=== PATIENT | male | born 1980 | race Hispanic/Latino ===

== ENCOUNTER 2024-12-22 23:48 | Inpatient (IN) | payer BC, OTHER, SELFPAY ==
[2024-12-23] MEDS ORDERED: ONDANSETRON 4 MG/2 ML VIAL ONE (01:14)
[2024-12-23] MEDS ORDERED: MORPHINE 4 MG/ML SYR ONE (01:14)
[2024-12-23] MEDS ORDERED: FAMOTIDINE 20 MG/2 ML VIAL IV ONE (01:14)
[2024-12-23] MEDS ORDERED: NA CHLORIDE 0.9% 2,000 ML ONE (01:15)
[2024-12-23] MEDS ORDERED: PIPERACIL/TAZO 3.375 GM VIAL IV ONE (01:15)
[2024-12-23] MEDS ORDERED: NA CHLORIDE 0.9% 100 ML ONE (01:15)
--- NOTE | 2024-12-23 01:24 | ER ---
Nurse's Notes [facility] Name: Wilfredo Finley Age: 44 yrs Sex: Male : 1980 Arrival Date: 12/22/2024 Time: 23:48 Bed 3 Private MD: Diagnosis: Cough;Fever, unspecified;Dehydration;Ankylosing spondylitis lumbar region;Paraplegia;Tachycardia, unspecified;Bandemia Presentation: 12/22 22:53 Chief complaint: EMS states: shortness of breath, body chills, chest palpitations, ha1 nausea, and vomiting. 22:53 Coronavirus screen: Client denies travel out of the [place] in the last 14 days. Ebola ha1 Screen: No symptoms or risks identified at this time. Initial Sepsis Screen: Does the patient meet any 2 criteria? No. Patient's initial sepsis screen is negative. Does the patient have a suspected source of infection? No. Patient's initial sepsis screen is negative. Risk Assessment: Do you want to hurt yourself or someone else? Patient reports no desire to harm self or others. Onset of symptoms was December 23, 2024. 22:53 Method Of Arrival: EMS: [facility] ha1 22:53 Acuity: JAYJAY 2 ha1 12/23 00:03 Care prior to arrival: Medication(s) given: Normal saline infusion, 500 mL, zofran 4 mg.ha1 Historical: - Allergies: 00:00 No Known Allergies; ha1 - Home Meds: 00:00 Fentanyl Patch Topical [Active]; Hydrocodone-Acetaminophen Oral [Active]; Morphine Oral ha1 [Active]; - PMHx: 00:00 Ankylosing Spondylitis; paraplegic; Pneumonia; ha1 - PSHx: 00:00 hip replacement; knee replacement; tendon release; ha1 - Immunization history:: Adult Immunizations up to date. - Infectious Disease History:: Denies. - Social history:: Smoking status: Patient denies any tobacco usage or history of. Screenin/09 23:50 [facility] ED Fall Risk Assessment (Adult) History of falling in the last 3 months, br2 including since admission No falls in past 3 months (0 pts) Confusion or Disorientation No (0 pts) Intoxicated or Sedated No (0 pts) Impaired Gait No (0 pts) Mobility Assist Device Used No (0 pt) Altered Elimination No (0 pt) Score/Fall Risk Level 0 - 2 = Low Risk. Abuse screen: Denies threats or abuse. Denies injuries from another. Nutritional screening: No deficits noted. Tuberculosis screening: No symptoms or risk factors identified. Assessment: 23:50 Reassessment: Patient and/or family updated on plan of care and expected duration. Pain br2 level reassessed. Patient is alert, oriented x 3, equal unlabored respirations, skin warm/dry/pink. General: Appears in no apparent distress. comfortable, Behavior is calm, cooperative. Pain: Complains of pain in chest, abdomen, right arm, left arm, right leg and left leg Pain currently is 6 out of 10 on a pain scale. Respiratory: Airway is patent Respiratory effort is even, unlabored, Respiratory pattern is regular, symmetrical. Vital Signs: 22:53 BP 130 / 85; Pulse 131; Resp 20; Temp 97.8; Pulse Ox 99% on R/A; ha1 12/23 01:00 BP 130 / 82; Pulse 126; Resp 18; Temp 97.1; Pulse Ox 100% ; br2 01:00 BP 134 / 81; Pulse 121; Resp 19; Pulse Ox 99% on R/A; br2 01:44 Weight 58.97 kg; br2 02:30 BP 133 / 93; Pulse 115; Resp 16; Pulse Ox 99% on R/A; br2 03:17 BP 121 / 82; Pulse 113; Resp 20 S; Pulse Ox 97% on R/A; Height 5 ft. 7 in. ; br2 ED Course: 12/22 23:50 Patient has correct armband on for positive identification. Bed in low position. Call br2 light in reach. Side rails up X 1. Provided Education on: PLAN OF CARE. 23:52 Patient arrived in ED. rv1 23:55 Rich Villavicencio MD is Attending Physician. [facility] 12/23 00:00 Triage completed. ha1 00:00 Maintain EMS IV. IV Changed dressing on Flushed right antecubital. br2 00:01 Niya Hinkle RN is Primary Nurse. br2 00:50 First set of blood cultures drawn by me. oe 01:09 Second set of blood cultures drawn by me. oe 01:10 Lactate w/ 2H reflex if indic. Sent. br2 01:10 Blood Culture Adult (2) Sent. br2 01:21 Matt Wong MD is Hospitalizing Provider. gabino 01:25 XRAY Chest (1 view) In Process Unspecified. EDMS 01:29 Flu Sent. oe 01:29 SARS RAPID Sent. oe 01:33 Flu Sent. br2 01:44 Manual Differential Sent. br2 02:40 CT Chest, Abdomen, Pelvis - W/Contrast In Process Unspecified. EDMS Administered Medications: 01:33 Drug: morphine IVP or IV 4 mg IVP once over 4 mins Route: IVP; Infused Over: 4 mins; br2 Site: right antecubital; 02:00 Follow up: Response: No adverse reaction br2 01:33 Drug: Ondansetron IVP 4 mg IVP once; over 2 minutes Route: IVP; Site: right antecubital;br2 02:00 Follow up: Response: No adverse reaction br2 01:45 Drug: Famotidine IVP 20 mg IVP once; dilute with 10 mL 0.9% NaCl; give over 2 minutes br2 Route: IVP; Site: right antecubital; 02:15 Follow up: Response: No adverse reaction br2 01:45 Drug: NS 0.9% IV (30 ml/kg) 30 ml/kg IV at bolus once; Sepsis Protocol; to be given as br2 a bolus over 90 minutes Route: IV; Rate: bolus; Site: right antecubital; 01:48 Drug: Piperacillin-Tazobactam IVPB 3.375 grams IVPB once over 60 mins; (mix in NS 100 br2 mL) Route: IVPB; Infused Over: 60 mins; Site: right antecubital; 02:30 Follow up: IV Status: Completed infusion; IV Intake: 100ml br2 Medication: 12/22 23:50 VIS not applicable for this client. br2 Intake: 12/23 02:30 IV: 100ml; Total: 100ml. br2 Outcome: 01:24 Decision to Hospitalize by Provider. gabino 04:23 Patient left the ED. br2 Signatures: Dispatcher [employer] EDMS Rich Villavicencio MD MD cha Espinosa, Orlando oe Ayala, Heidy, RN RN ha1 Lani Kim rv1 Niya Hinkle RN RN br2 Corrections: (The following items were deleted from the chart) 03:38 03:17 BP 121 / 82; Pulse 113bpm; Resp 20bpm; Spontaneous; Pulse Ox 97% RA; br2 br2
--- NOTE | 2024-12-23 01:24 | EDPHYS ---
Physician Documentation [facility] Name: Wilfredo Finley Age: 44 yrs Sex: Male : 1980 Arrival Date: 12/22/2024 Time: 23:48 Bed 3 Private MD: NARCISO Physician Rich Villavicencio HPI: 12/23 01:12 This 44 yrs old Male presents to ER via EMS with complaints of weak, cough , gabino back pain and fever. 01:12 The patient presents with pain, tenderness. The complaints affect the right leg and gabino left leg. Context: The problem was sustained at an unknown site. Modifying factors: The symptoms are alleviated by nothing. the symptoms are aggravated by nothing. The patient has shortness of breath at rest. The patient presents with pain that is chronic, with no known mechanism of injury. The symptoms are located in the lumbar area, left low back, left mid back, right mid back and right low back. weak , fever , hx of HLA B27. Severity of symptoms: At their worst the symptoms were moderate, in the emergency department the symptoms are unchanged. Severity of symptoms: At their worst the symptoms were moderate in the emergency department the symptoms are unchanged. The patient reports fever, that was measured at 100 degrees Fahrenheit. Modifying factors: there are no obvious modifying factors. Historical: - Allergies: 00:00 No Known Allergies; ha1 - Home Meds: 00:00 Fentanyl Patch Topical [Active]; Hydrocodone-Acetaminophen Oral [Active]; Morphine Oral ha1 [Active]; - PMHx: 00:00 Ankylosing Spondylitis; paraplegic; Pneumonia; ha1 - PSHx: 00:00 hip replacement; knee replacement; tendon release; ha1 - Immunization history:: Adult Immunizations up to date. - Infectious Disease History:: Denies. - Social history:: Smoking status: Patient denies any tobacco usage or history of. ROS: 01:15 Constitutional: Negative for fever, chills, and weight loss, Eyes: Negative for injury, gabino pain, redness, and discharge, ENT: Negative for injury, pain, and discharge, Neck: Negative for injury, pain, and swelling, Cardiovascular: Negative for chest pain, palpitations, and edema, Abdomen/GI: Negative for abdominal pain, nausea, vomiting, diarrhea, and constipation, : Negative for injury, bleeding, discharge, and swelling, MS/Extremity: Negative for injury and deformity, Psych: Negative for depression, anxiety, suicide ideation, homicidal ideation, and hallucinations, Allergy/Immunology: Negative for hives, rash, and allergies, Endocrine: Negative for neck swelling, polydipsia, polyuria, polyphagia, and marked weight changes, 01:15 Respiratory: Positive for cough, shortness of breath, 01:15 Back: Positive for decreased range of motion, pain at rest, pain with movement, :15 MS/extremity: Positive for erythema, of the right leg and left leg, :15 Neuro: Positive for weakness, Exam: :15 Constitutional: This is a well developed, well nourished patient who is awake, alert, gabino and in no acute distress. Head/Face: Normocephalic, atraumatic. Eyes: Pupils equal round and reactive to light, extra-ocular motions intact. Lids and lashes normal. Conjunctiva and sclera are non-icteric and not injected. Cornea within normal limits. Periorbital areas with no swelling, redness, or edema. ENT: Nares patent. No nasal discharge, no septal abnormalities noted. Tympanic membranes are normal and external auditory canals are clear. Oropharynx with no redness, swelling, or masses, exudates, or evidence of obstruction, uvula midline. Mucous membranes moist. Neck: Trachea midline, no thyromegaly or masses palpated, and no cervical lymphadenopathy. Supple, full range of motion without nuchal rigidity, or vertebral point tenderness. No Meningismus. Chest/axilla: Normal chest wall appearance and motion. Nontender with no deformity. No lesions are appreciated. Respiratory: Lungs have equal breath sounds bilaterally, clear to auscultation and percussion. No rales, rhonchi or wheezes noted. No increased work of breathing, no retractions or nasal flaring. Abdomen/GI: Soft, non-tender, with normal bowel sounds. No distension or tympany. No guarding or rebound. No evidence of tenderness throughout. Back: No spinal tenderness. No costovertebral tenderness. Full range of motion. Male : Normal genitalia with no discharge or lesions. Skin: Warm, dry with normal turgor. Normal color with no rashes, no lesions, and no evidence of cellulitis. Neuro: Awake and alert, GCS 15, oriented to person, place, time, and situation. Cranial nerves II-XII grossly intact. Motor strength 5/5 in all extremities. Sensory grossly intact. Cerebellar exam normal. Normal gait. Psych: Awake, alert, with orientation to person, place and time. Behavior, mood, and affect are within normal limits. 01:15 Cardiovascular: Rate: tachycardic, actual rate is 131 bpm, Rhythm: regular, Pulses: Pulses are 4+ in lumbar area. Heart sounds: normal, Edema: is not appreciated, JVD: is not appreciated, 01:20 ECG was reviewed by the Attending Physician. [facility] 03:48 ECG was reviewed by the Attending Physician. [facility] Vital Signs: 12/22 22:53 BP 130 / 85; Pulse 131; Resp 20; Temp 97.8; Pulse Ox 99% on R/A; ha1 12/23 01:00 BP 130 / 82; Pulse 126; Resp 18; Temp 97.1; Pulse Ox 100% ; br2 01:00 BP 134 / 81; Pulse 121; Resp 19; Pulse Ox 99% on R/A; br2 01:44 Weight 58.97 kg; br2 02:30 BP 133 / 93; Pulse 115; Resp 16; Pulse Ox 99% on R/A; br2 03:17 BP 121 / 82; Pulse 113; Resp 20 S; Pulse Ox 97% on R/A; Height 5 ft. 7 in. ; br2 MDM: 12/22 23:55 Medical Screening Exam initiated [facility] 12/23 01:16 Differential diagnosis: asthma, Bronchitis CHF exacerbation, viral Infection, bacterial gabino infection, URI, bronchitis, pneumonia UTI, arthritis, Cholelithiasis chronic back pain, Pyelonephritis sprain, Ureterolithiasis pneumonia, Sepsis. Antibiotic administration: Rocephin and Zithromax given, ZOSYN. Differential Diagnosis altered mental status, sepsis, flu. Immunization status:. Data reviewed: vital signs, nurses notes, EMS record, lab test result(s), EKG, radiologic studies. Consideration of Admission/Observation Patient was admitted/placed on observation. Escalation of care including admission/observation considered. I considered the following discharge prescriptions or medication management in the emergency department Medications were administered in the Emergency Department. See MAR. Independent interpretation of the following test(s) in the Emergency Department EKG: See my EKG interpretation above. Test considered but Not performed: Ultrasound NO ABD USG. Historians other than the Patient: Parent: FAMILY WELL INFORMED. Care significantly affected by the following chronic conditions: PARAPLEGIC, HLA B27, PNA. Counseling: I had a detailed discussion with the patient and/or guardian regarding the historical points, exam findings, and any diagnostic results supporting the discharge/admit diagnosis, lab results, radiology results, the need for further work-up and treatment in the hospital. 03:49 Post IV fluid administration reassessment for Sepsis: Client prescribed 30 mL/kg IVF. [facility] Sepsis focused reassessment complete. 12/23 00:29 Order name: Basic Metabolic Panel; Complete Time: 01:59 [facility] 12/23 00:29 Order name: CBC with Diff; Complete Time: 03:31 [facility] 12/23 00:29 Order name: LFT's; Complete Time: :59 [facility] 12/23 00:29 Order name: Magnesium; Complete Time: :59 [facility] 12/23 00:29 Order name: NT PRO-BNP; Complete Time: :59 [facility] 12/23 00:29 Order name: PT-INR; Complete Time: 01:43 [facility] 12/23 00:29 Order name: Troponin HS; Complete Time: :59 [facility] 12/23 00:29 Order name: Lipase; Complete Time: :59 [facility] 12/23 00:29 Order name: Urinalysis w/ reflexes; Complete Time: 03:31 [facility] 12/23 00:29 Order name: Blood Culture Adult (2) [facility] 12/23 00:29 Order name: Lactate w/ 2H reflex if indic.; Complete Time: 01:57 [facility] 12/23 00:29 Order name: Flu; Complete Time: 03:31 [facility] 12/23 00:29 Order name: SARS RAPID; Complete Time: 03:31 [facility] 12/23 01:44 Order name: Manual Differential; Complete Time: 03:31 [facility] 12/23 03:02 Order name: Urinalysis w/ reflexes [facility] 12/23 03:02 Order name: CBC with Automated Diff [facility] 12/23 03:02 Order name: CBC with Automated Diff [facility] 12/23 03:02 Order name: Comprehensive Metabolic Panel [facility] 12/23 03:02 Order name: Comprehensive Metabolic Panel [facility] 12/23 00:29 Order name: XRAY Chest (1 view) [facility] 12/23 00:29 Order name: CT Chest, Abdomen, Pelvis - W/Contrast [facility] 12/23 00:29 Order name: EKG; Complete Time: 00:30 [facility] 12/23 00:29 Order name: Cardiac monitoring; Complete Time: 03:48 [facility] 12/23 00:29 Order name: EKG - Nurse/Tech; Complete Time: 03:48 [facility] 12/23 00:29 Order name: IV Saline Lock; Complete Time: 03:48 [facility] 12/23 00:29 Order name: Labs collected and sent; Complete Time: 03:48 [facility] 12/23 00:29 Order name: O2 Per Protocol; Complete Time: 03:48 [facility] 12/23 00:29 Order name: O2 Sat Monitoring; Complete Time: 03:48 [facility] 12/23 00:29 Order name: IV Saline Lock - Large Bore; Complete Time: 01:21 [facility] EC:48 Rate is 130 beats/min. Rhythm is regular. DE interval is normal. QRS interval is gabino normal. QT interval is normal. No Q waves. T waves are Normal. No ST changes noted. Clinical impression: Sinus tachycardia and No evidence of ischemia. Interpreted by me. Reviewed by me. Administered Medications: 01:33 Drug: morphine IVP or IV 4 mg IVP once over 4 mins Route: IVP; Infused Over: 4 mins; br2 Site: right antecubital; 02:00 Follow up: Response: No adverse reaction br2 01:33 Drug: Ondansetron IVP 4 mg IVP once; over 2 minutes Route: IVP; Site: right antecubital;br2 02:00 Follow up: Response: No adverse reaction br2 01:45 Drug: Famotidine IVP 20 mg IVP once; dilute with 10 mL 0.9% NaCl; give over 2 minutes br2 Route: IVP; Site: right antecubital; 02:15 Follow up: Response: No adverse reaction br2 01:45 Drug: NS 0.9% IV (30 ml/kg) 30 ml/kg IV at bolus once; Sepsis Protocol; to be given as br2 a bolus over 90 minutes Route: IV; Rate: bolus; Site: right antecubital; 01:48 Drug: Piperacillin-Tazobactam IVPB 3.375 grams IVPB once over 60 mins; (mix in NS 100 br2 mL) Route: IVPB; Infused Over: 60 mins; Site: right antecubital; 02:30 Follow up: IV Status: Completed infusion; IV Intake: 100ml br2 Disposition Summary: 12/23/24 01:24 Hospitalization Ordered Notes: Hospitalization Status: Inpatient Admission gabino Provider: Matt Wong cha Location: Telemetry/MedSurg (Inpatient) gabino Condition: Fair gabino Problem: new gabino Symptoms: have improved gabino Bed/Room Type: Standard [facility] Room Assignment: 410(12/23/24 03:14) rv1 Diagnosis - Cough gabino - Fever, unspecified gabino - Dehydration gabino - Ankylosing spondylitis lumbar region gabino - Paraplegia gabino - Tachycardia, unspecified gabino - Bandemia gabino Forms: - Medication Reconciliation Form gabino - SBAR form gabino - Leadership Thank You Letter gabino Signatures: Dispatcher [employer] EDRich Beasley MD MD cha Ayala, Heidy, RN RN ha1 Lani Kim rv1 Niya Hinkle RN RN br2 Corrections: (The following items were deleted from the chart) 00:30 00:30 BASIC METABOLIC PANEL+C.LAB.BRZ ordered. EDKS EDKS 00:30 00:30 CBC+H.LAB.BRZ ordered. EDKS EDKS 00:30 00:30 HEPATIC FUNCTION+C.LAB.BRZ ordered. [facility] EDKS 00:30 00:30 MAGNESIUM+C.LAB.BRZ ordered. [facility] EDKS 00:30 00:30 PROBNP+C.LAB.BRZ ordered. [facility] EDKS 00:30 00:30 PROTIME (+INR)+COAG.LAB.BRZ ordered. [facility] EDKS 00:30 00:30 Troponin High Sensitivity+C.LAB.BRZ ordered. [facility] EDKS 00:30 00:30 LIPASE+C.LAB.BRZ ordered. [facility] EDKS 00:30 00:30 Urinalysis+U.LAB.BRZ ordered. [facility] EDKS 00:30 00:30 BLOOD CULTURE*+BA.LAB.BRZ ordered. [facility] EDKS 00:30 00:30 LACTATE+C.LAB.BRZ ordered. [facility] EDKS 00:30 00:30 Influenza Screen (A \T\ B)+BA.LAB.BRZ ordered. [facility] EDKS 00:30 00:30 SARS-COV-2 Antigen Rapid+I.LAB.BRZ ordered. EDMS EDMS 03:14 01:24 gabino rv1
[2024-12-23 01:39] LABS: Absolute Lymphocytes (CBC) 0.5 K/uL (0.7-4.9); Absolute Monocytes 0.3 K/uL (0.1-1.3); Absolute Neutrophil 7.8 K/uL (1.8-8.0); Basophils % 0.1 % (0-1.3); Hematocrit 39.1 % (39.6-49.0); Hemoglobin 12.9 g/dL (13.6-17.9); Lymphocytes % 5.8 % (15.3-44.8); MCH 27.9 pg (27.0-35.0); MCHC 32.8 g/dL (32.0-36.0); MPV 8.3 fL (7.6-11.3); Neutrophils % 90.1 % (41.7-73.7); Platelets 393 thou/uL (152-406); RBC Red Blood Cell Count 4.61 M/uL (4.33-5.43); Red Cell Distribution Width 15.2 % (12.1-15.2)
[2024-12-23 01:42] LABS: PT Prothrombin Time 13.6 SECONDS (9.4-12.5); Protime INR 1.3
[2024-12-23 01:57] LABS: AST/SGOT 11 U/L (15-37); Albumin 3.6 g/dL (3.4-5.0); Albumin/Globulin Ratio 0.7 (1.1-1.8); Alkaline Phosphatase 119 U/L (45-117); Anion Gap 17.7 mEq/L (5.0-15.0); BUN Blood Urea Nitrogen 10 mg/dL (7-18); Bicarbonate 17 mEq/L (21-32); Bilirubin Direct 0.2 mg/dL (0-0.2); Bilirubin Indirect, Calculated 0.4 mg/dL (0.2-0.8); Bilirubin Total 0.6 mg/dL (0.2-1.0); Globulin 4.9 g/dL (2.3-3.5); Glomerular Filtration Rate 116 ml/min (=/>90); Glucose Level 69 mg/dL (74-106); Lipase 13 U/L (13-75); Magnesium 1.8 mg/dL (1.6-2.4); NT PRO-BNP 80 pg/mL (<125); Potassium 3.7 mEq/L (3.5-5.1); Protein, Total 8.5 g/dL (6.4-8.2); Sodium Level 136 mEq/L (136-145); Troponin High Sensitivity 7.8 pg/mL (<58.9)
[2024-12-23 01:58] LABS: ALT/SGPT < 14 U/L (16-61)
[2024-12-23 02:12] LABS: SARS-CoV-2 Antigen CONTROL BLUE LINE VIS/BG OK; SARS-CoV-2 Antigen Rapid Res Negative (Negative)
[2024-12-23 02:43] LABS: Band Neutrophils 10 % (0-1); Blood Morphology Comment NOT SEEN (NOT SEEN); Differential Total Cells Count 100; Lymphocytes 8 % (15-42); Monocytes 1 % (0-10); Platelet Estimate ADEQ; Reactive Lymphocytes 2 %; Segmented Neutrophils 79 % (40-80)
[2024-12-23] MEDS ORDERED: ACETAMINOPHEN 325 MG TABLET PO PRN (02:56)
--- NOTE | 2024-12-23 02:56 | P.HP ---
Certification for Inpatient Patient admitted to: Inpatient With expected LOS: >2 Midnights Practitioner: I am a practitioner with admitting privileges, knowledge of patient current condition, hospital course, and medical plan of care. Services: Services provided to patient in accordance with Admission requirements found in Title 42 Section 412.3 of the Code of Federal Regulations Patient History Date of Service: 12/23/24 Reason for admission: Pneumonia History of Present Illness: 44 yrs old Male with past medical history of ankylosing spondylitis, paraplegia, history of recurrent pneumonia who was brought to ER with generalized weakness, subjective fever, cough, back pain and fever which has been going on for the last 3 to 4 days and was brought to ER. Denies any nausea vomiting or diarrhea. No sick contacts. He also has shortness of breath even at rest. Has bilateral lower extremity pain which has been chronic and also back pain which has been worsening over the last few days. Patient was assessed in the ER and is admitted for further management of possible pneumonia. Allergies No Known Allergies Allergy (Unverified 12/23/24 03:36) Home medications list reviewed: Yes - Past Medical/Surgical History Past Medical History: Reviewed- Non-Contributory -: Ankylosing spondylitis, paraplegia Past Surgical History: Reviewed- Non-Contributory - Social History Smoking Status: Never smoker Review of Systems 10-point ROS is otherwise unremarkable Physical Examination - Vital Signs Temperature: 97.1 F Blood Pressure: 134/81 Pulse: 120 Respirations: 18 Pulse Ox (%): 94 - Physical Exam General: Alert, Oriented x3, Mild distress HEENT: Atraumatic, Normocephalic Neck: Supple, JVD not distended Respiratory: Clear to auscultation bilaterally, Crackles/rales Cardiovascular: No edema, Regular rate/rhythm Capillary refill: <2 Seconds Gastrointestinal: Soft and benign, W/out hepatosplenomegaly Musculoskeletal: No clubbing, Contractures, Tenderness Integumentary: No rashes Neurological: Other (Alert awake), Abnormal gait Lymphatics: No axilla or inguinal lymphadenopathy - Studies Laboratory Data (last 24 hrs) 12/23/24 12/23/24 12/23/24 00:30 00:30 00:30 WBC 8.70 Hgb 12.9 L Hct 39.1 L Plt Count 393 PT 13.6 H INR 1.30 Sodium 136 Potassium 3.7 BUN 10 Creatinine 0.73 Glucose 69 L Magnesium 1.8 Total Bilirubin 0.6 AST 11 L ALT < 14 L Alkaline Phosphatase 119 H Lipase 13 Microbiology Data (last 24 hrs): 12/23/24 01:13 Nasopharnyx Influenza Type A Antigen Screen - Final 12/23/24 01:13 Nasopharnyx Influenza Type B Antigen Screen - Final Assessment and Plan - Plan Sepsis Pneumonia Started on IV antibiotic Pain control Antipyretics COVID-negative, Will obtain cultures IV hydration History of ankylosing spondylitis Intractable back pain Started on pain medications and titrate as needed GI/DVT prophylaxis Advanced directive full code Discharge Plan: Home Plan to discharge in: 48 Hours - Advance Directives Does patient have a Living Will: No Does patient have a Durable POA for Healthcare: No - Code Status/Comfort Care Code Status: Full Code Time Spent Managing Pts Care (In Minutes): 48
[2024-12-23 03:02] LABS: Specific Gravity 1.009 (1.005-1.030); Sqamous Epithelial None Seen /HPF (None Seen); Urine Bacteria <20 /HPF (<20); Urine Bilirubin NEGATIVE (Negative); Urine Blood Trace (Negative); Urine Clarity Clear (Clear); Urine Color Colorless (Yellow); Urine Culture Reflex Order NOT NEEDED; Urine Glucose NEGATIVE (Negative); Urine Ketones 4+ (Negative); Urine Microscopic Reflex YN ORDER UMIC; Urine Mucus Slight /HPF (None Seen); Urine Nitrite NEGATIVE (Negative); Urine Protein NEGATIVE (Negative); Urine RBC <5 /HPF (None Seen); Urine Urobilinogen Normal (Normal); Urine WBC <5 /HPF (<5)
[2024-12-23 04:50] VITALS: BMI 20.3
[2024-12-23] MEDS ORDERED: HYDROCODONE/APAP 5/325 MG TAB PO PRN (05:28)
--- NOTE | 2024-12-23 05:31 | RAD REPORT ---
EXAM DESCRIPTION: Chest Single View [employer]Lex: XR CHEST 1 VIEW CLINICAL HISTORY: 44 years Male, Cough;Pain COMPARISON: None. FINDINGS: Single portable AP supine view of the chest. Normal size of the cardiac silhouette. No pulmonary vasc ular congestion. No consolidation. No visualized pleural effusion or pneumothorax. No acute osseous abnormality. IMPRESSION: No acute radiographic abnormality. Electronically signed by: Elva Aguillon MD 12/23/2024 02:16 AM [facility] Due to temporary technical issues with the [employer] reporting system, reports are being argelia d by the in-house radiologist without review as a courtesy to ensure prompt reporting the interpreting radiologist is fully responsible for the content of the report. Transcribed Date/Time: 12/23/2024 5:31 AM
[2024-12-23] MEDS: HYDROMORPHONE HCL 0.5 MG/0.5 ML INJ IV PRN (05:45)
[2024-12-23] MEDS: NA CHLORIDE 0.9% 1,000 ML IV SCH (05:45)
[2024-12-23] MEDS: AZITHROMYCIN IV 500 MG in NA CHLORIDE 0.9% 250 ML IVPB SCH (05:45)
--- NOTE | 2024-12-23 07:09 | RAD REPORT ---
EXAM: Chest Abdomen Pelvis W Cont CLINICAL HISTORY: Abdominal distention;Congestion;Cough COMPARISON: Report from CT chest abdomen pelvis dated 07/26/2024. No images available at time of dicta tion for direct comparison. TECHNIQUE: CT of the chest, abdomen and pelvis performed following the administration of IV contrast. No oral contrast. This exam was performed according to our departmental dose-optimization program, which includes automated exposure control, adjustment of the mA and/or kV according to patient size a nd/or use of iterative reconstruction technique. FINDINGS: Artifact from patient's upper extremities. Mild motion artifact. Significant artifact from bilateral hip prostheses which obscures much of the pelvis. Chest: Thyroid: No abnormalities of the visualized thyroid gland. Great Vessels: Great vessels have normal anatomic configuration. Thoracic Aorta: No aneurysm. No visualized dissection. Pulmonary arteries: The main pulmonary artery is not dilated. No central pulmonary embolism. Heart: No pericardial effusion. No significant coronary artery calcifications. Lymph Nodes: No enlarged mediastinal, hilar, or axillary lymph nodes identified. Esophagus: Tiny hiatal hernia. Esophagus is otherwise unremarkable. Other: Bilateral gynecomastia. Lungs: Motion artifact. Mild bilateral lower lobe opacities probably due to atelectasis. Pleura: No pleural effusion or pneumothorax. Trachea/Airways: No abnormalities of the visualized trachea or airways. Abdomen: Liver: Normal contour with diffuse decreased density. No intrahepatic mass or biliary dilatation. Gallbladder: Gallbladder is distended. No calcified gallstones. Spleen, Pancreas, and Adrenal Glands: The spleen, pancreas, and adrenal glands are unremarkable. Kidneys: No suspicious mass. No urinary tract calculi. No hydronephrosis. Vasculature: The aorta and IVC have normal caliber and position. The portal vein is patent. The pro ximal visceral and renal arteries are patent. Stomach: Tiny hiatal hernia. Stomach is otherwise unremarkable. Other: No free intraperitoneal air. No free fluid or lymphadenopathy. Pelvis: Bladder: Partially obscured. Visualized portion is moderately distended. Bowel: No bowel obstruction. Is some mild gaseous distention of the colon. Appendix: Normal appendix. Pelvis: Lower pelvis mostly obscured due to to extensive artifact from bilateral hip prostheses. No v isualized mass. Bones: Diffuse osseous demineralization. Heterogeneous ill-defined sclerosis and lucency involving th e bony pelvis with fusion of the sacroiliac joints. Bilateral hip arthroplasties. IMPRESSION: 1. Mild bilateral lower lobe opacities probably due to atelectasis. 2. Hepatic steatosis. 3. Distended gallbladder. No calcified gallstones. 4. Moderately distended urinary bladder. 5. Diffuse osseous demineralization which could be due to chronic disuse. Heterogeneous ill-defined s clerosis and lucency involving the bony pelvis with fusion of the sacroiliac joints. Correlate with any history of trauma and metabolic bone disease.. Electronically signed by: Elva Augillon MD 12/23/2024 03:51 AM [facility] Due to temporary technical issues with the PACS/Rezora reporting system, reports are being argelia d by the in-house radiologist without review as a courtesy to ensure prompt reporting the interpreting radiologist is fully responsible for the content of the report. Transcribed Date/Time: 12/23/2024 7:09 AM
[2024-12-23] MEDS: CEFTRIAXONE 1,000 MG in NA CHLORIDE 0.9% 50 ML IVPB SCH (07:55)
[2024-12-23] MEDS: MORPHINE *EXTENDED RELEASE* 15 MG TAB PO SCH (09:00)
[2024-12-23] MEDS: FENTANYL 50 MCG/PATCH TD SCH (09:19)
[2024-12-23] MEDS: D5 0.9 NS 1,000 ML IV SCH (09:19)
[2024-12-23] MEDS: ENOXAPARIN 40 MG/0.4 ML SQ SCH (09:19)
[2024-12-23] MEDS: ONDANSETRON 4 MG/2 ML VIAL IV PRN (09:31)
[2024-12-23] MEDS ORDERED: LORAZEPAM 1 MG TABLET PO PRN (09:52)
--- NOTE | 2024-12-23 12:19 | P.PN ---
Date of Service: 12/23/24 This is 44 years old gentleman with past medical history notable for untreated ankylosing spondylitis, chronic pain syndrome on fentanyl patch and MS Contin who presented to emergency room for generalized weakness, nausea vomiting and uncontrolled pain 1. Suspected opioid withdrawal #2 untreated ankylosing spondylitis #3 chronic pain on opioid #4 starvation ketoacidosis #5 sinus tachycardia due to #1 I will resume his fentanyl patch and MS Contin with as needed morphine IV, D5 normal saline, chest x-ray, CT of the chest, abdomen and pelvis personally reviewed no abnormality except inflammation and sclerosis of SI joint and pelvis and both hip joint, I will discontinue the empiric antibiotics, order thyroid function test. Patient needs to see mobile health vehicle operator to start disease modifying drug and [employer]olog[employer] for ankylosing spondylitis as outpatient.
[2024-12-23] MEDS: LORAZEPAM 1 MG TABLET PO SCH (20:10)
[2024-12-23] MEDS ORDERED: LORAZEPAM 1 MG TABLET PO SCH (21:00)
[2024-12-24 06:08] LABS: Absolute Eosinophils 0.1 K/uL (0-0.5); Absolute Monocytes 0.5 K/uL (0.1-1.3); Absolute Neutrophil 2.9 K/uL (1.8-8.0); Basophils % 0.6 % (0-1.3); Eosinophils % 1.1 % (0-4.4); Hemoglobin 12.5 g/dL (13.6-17.9); Lymphocytes % 36.3 % (15.3-44.8); MCH 27.9 pg (27.0-35.0); MCHC 32.9 g/dL (32.0-36.0); MCV 84.9 fL (80-100); MPV 7.3 fL (7.6-11.3); Monocytes % 9.8 % (3.3-12.3); Neutrophils % 52.2 % (41.7-73.7); Nucleated Red Blood Cells % 0.1 % (0-0); Platelets 367 thou/uL (152-406); RBC Red Blood Cell Count 4.47 M/uL (4.33-5.43); Red Cell Distribution Width 15.1 % (12.1-15.2)
[2024-12-24 06:33] LABS: Albumin 3.1 g/dL (3.4-5.0); Albumin/Globulin Ratio 0.7 (1.1-1.8); Alkaline Phosphatase 96 U/L (45-117); Anion Gap 10.2 mEq/L (5.0-15.0); Bicarbonate 20 mEq/L (21-32); Bilirubin Total 0.5 mg/dL (0.2-1.0); Globulin 4.4 g/dL (2.3-3.5); Glomerular Filtration Rate 121 ml/min (=/>90); Glucose Level 112 mg/dL (74-106); Potassium 3.2 mEq/L (3.5-5.1); Protein, Total 7.5 g/dL (6.4-8.2); Sodium Level 140 mEq/L (136-145)
[2024-12-24 06:34] LABS: ALT/SGPT < 14 U/L (16-61); AST/SGOT < 10 U/L (15-37); BUN Blood Urea Nitrogen < 3 mg/dL (7-18)
[2024-12-24] MEDS: POTASSIUM CL SA 10 MEQ TAB PO ONE (08:13)
[2024-12-24 08:18] VITALS: TEMP 98.3
--- NOTE | 2024-12-24 10:43 | P.DS ---
Admission Date: 12/23/24 Discharge Date: 12/24/24 Disposition: ROUTINE DISCHARGE Discharge Condition: GOOD Reason for Admission: Pneumonia Brief History of Present Illness: This is 44 years old gentleman with past medical history notable for ankylosing spondylitis on Enbrel weekly by his family doctor, chronic pain syndrome on fentanyl patch and MS Contin prescribed by his family doctor, generalized anxiety disorder on lorazepam, functional paraplegia, chronic dermatitis of both lower extremity who presented to emergency room for generalized weakness, nausea vomiting and uncontrolled pain and admitted on general medical floor. Hospital Course: His manifestation was consistent with opioid withdrawal and starvation ketoacidosis. He was treated with IV dextrose and his opioid was resumed along with IV hydromorphone as needed. His symptoms resolved the following day and he is being discharged at home. He needs to see a meat and poultry inspector for further evaluation and management of his ankylosing spondylitis with dermatology complication. He has a dermatology appointment in couple of months. 1. Suspected opioid withdrawal Resolved, #2 uncontrolled ankylosing spondylitis on Enbrel weekly Chest x-ray, CT of the chest, abdomen and pelvis no abnormality, no pneumonia except inflammation and sclerosis of SI joint and pelvis and both hip joints, #3 chronic pain on high-dose opioid #4 starvation ketoacidosis Resolved #5 sinus tachycardia due to #1 Improved, normal thyroid function test #6 generalized anxiety disorder Lorazepam as needed at home #7 possible pyoderma gangrenosum of both lower extremity Likely related to #2 Need to see a shorer with skin biopsy #8 low body weight due to #2 Vital Signs/Physical Exam: Temp Pulse Resp BP Pulse Ox 98.3 F 80 20 101/62 99 12/24/24 08:00 12/24/24 08:00 12/24/24 08:13 12/24/24 08:00 12/24/24 08:13 Other Physical/Emotional Findings: - Physical Exam. General: Chronic ill- looking, emaciated , in no apparent distress,. HEENT: Normocephalic, atraumatic, nonicteric sclera, nonanemic conjunctive. Neck: Supple, without JVD or goiter or thyroid mass. Respiratory: Normal breathing effort, clear to auscultation bilaterally, no crackles no wheezing or rhonchi. Cardiovascular: Regular rate and rhythm, S1, S2 normal, no murmur no gallop. Gastrointestinal: Normal bowel sounds, nondistended, nontender, No ascites, , No masses, no hepatosplenomegaly. Extremities : No clubbing, No peripheral edema,. Integumentary: Erythematous papular nodular skin lesion on both lower extremity from knees to ankles. Lymphatics: No axilla or cervical lymphadenopathy. Neurology; alert awake oriented x3, no focal neurologic deficit, Laboratory Data at Discharge: WBC 5.60 thou/uL (4.3-10.9) 12/24/24 05:34 Hgb 12.5 g/dL (13.6-17.9) L 12/24/24 05:34 Hct 38.0 % (39.6-49.0) L 12/24/24 05:34 Plt Count 367 thou/uL (152-406) 12/24/24 05:34 PT 13.6 SECONDS (9.4-12.5) H 12/23/24 00:30 INR 1.30 12/23/24 00:30 Sodium 140 mEq/L (136-145) 12/24/24 05:34 Potassium 3.2 mEq/L (3.5-5.1) L 12/24/24 05:34 BUN < 3 mg/dL (7-18) L 12/24/24 05:34 Creatinine 0.65 mg/dL (0.70-1.30) L 12/24/24 05:34 Glucose 112 mg/dL (74-106) H 12/24/24 05:34 Magnesium 1.8 mg/dL (1.6-2.4) 12/23/24 00:30 Total Bilirubin 0.5 mg/dL (0.2-1.0) 12/24/24 05:34 AST < 10 U/L (15-37) L 12/24/24 05:34 ALT < 14 U/L (16-61) L 12/24/24 05:34 Alkaline Phosphatase 96 U/L (45-117) 12/24/24 05:34 Lipase 13 U/L (13-75) 12/23/24 00:30 Home Medications: Fentanyl Patch [Duragesic Patch*] 1 each TD EVERY 3RD DAY 12/23/24 LORazepam [Ativan*] 3 mg PO BEDTIME 12/23/24 Morphine *Extended Release* [MS Contin*] 30 mg PO BID 12/23/24 Ondansetron [Ondansetron Odt] 4 mg PO TID PRN #30 12/24/24 New Medications: Ondansetron [Ondansetron Odt] 4 mg PO TID PRN #30 PRN Reason: Nausea / Vomiting Physician Discharge Instructions: Please give the list of rheumatologists in the area Diet: Regular Activity: Ad chaya Followup: NONE,NONE [Primary Care Provider] -
[2024-12-24 11:39] VITALS: O2SAT 98
--- NOTE | 2024-12-24 12:44 | EKG ---
Test Date: 2024-12-23 Test Time: 03:35:50 Non Profit Director: ARACELI MEASUREMENT RESULTS: Intervals: Rate: 130 ID: [id number] QRSD: 84 QT: 302 QTc: 444 [place]: P: 78 ID: [id number] QRS: 59 T: 45 INTERPRETIVE STATEMENTS: Sinus tachycardia Otherwise normal ECG Compared to ECG 07/26/2024 22:11:54 No significant changes Electronically Signed On 12-24-24 12:41:57 CONSERVATION EDUCATOR by Chacorta Stanton
[2024-12-24 12:52] VITALS: BP 112/76
[2024-12-24] MEDS ORDERED: MUPIROCIN 2% OINT 22GM TUBE TOP SCH (21:00)
== END 2024-12-24 16:31 | disposition home or self-care (01) | DRG 897 ==
LOC: ER 23:48 → 4TH 12-23 02:56
PROVIDERS: ADMIT Family Medicine; ATTEND Internal Medicine
DX: F11.23 Opioid dependence with withdrawal (principal); E87.29 Other acidosis; L88 Pyoderma gangrenosum; M45.9 Ankylosing spondylitis of unspecified sites in spine; E86.0 Dehydration; G89.4 Chronic pain syndrome; L30.9 Dermatitis, unspecified; F41.1 Generalized anxiety disorder; F44.4 Conversion disorder with motor symptom or deficit; R00.0 Tachycardia, unspecified; Z11.52 Encounter for screening for COVID-19; Z96.649 Presence of unspecified artificial hip joint; Z96.659 Presence of unspecified artificial knee joint
CPT/HCPCS: 36415; 71045; 71260; 74177; 80048; 80053; 80076; 81001; 83605; 83690; 83735; 83880; 84439; 84443; 84484; 85025; 85610; 87040; 87070; 87077; 87186; 87205; 87804; 87811; 93005; 94760; 96365; 96375; 99284; J0696; J1171; J1650; J2405; J2543; J7030; J7042; J7050; Q9967

== ENCOUNTER 2025-02-01 02:44 | Inpatient (IN) | payer OTHER, SELFPAY ==
[2025-02-01 03:13] LABS: Absolute Lymphocytes (CBC) 0.7 K/uL (0.7-4.9); Absolute Monocytes 0.6 K/uL (0.1-1.3); Absolute Neutrophil 9.7 K/uL (1.8-8.0); Basophils % 0.3 % (0-1.3); Eosinophils % 0.1 % (0-4.4); Hematocrit 47.7 % (39.6-49.0); Hemoglobin 15.8 g/dL (13.6-17.9); Lymphocytes % 6.2 % (15.3-44.8); MCHC 33.1 g/dL (32.0-36.0); MCV 87.5 fL (80-100); Monocytes % 5.2 % (3.3-12.3); Neutrophils % 88.2 % (41.7-73.7); Platelets 503 thou/uL (152-406); RBC Red Blood Cell Count 5.45 M/uL (4.33-5.43); Red Cell Distribution Width 15.9 % (12.1-15.2)
[2025-02-01] MEDS ORDERED: NA CHLORIDE 0.9% 1,000 ML ONE ×2 (03:19→05:39)
[2025-02-01] MEDS ORDERED: ONDANSETRON 4 MG/2 ML VIAL ONE ×2 (03:19→06:22)
[2025-02-01] MEDS ORDERED: FAMOTIDINE 20 MG/2 ML VIAL IV ONE (03:19)
[2025-02-01 03:31] LABS: ALT/SGPT 15 U/L (16-61); Albumin 4.3 g/dL (3.4-5.0); Albumin/Globulin Ratio 0.7 (1.1-1.8); Alkaline Phosphatase 135 U/L (45-117); Anion Gap 21.1 mEq/L (5.0-15.0); BUN Blood Urea Nitrogen 13 mg/dL (7-18); Bicarbonate 13 mEq/L (21-32); Bilirubin Total 0.6 mg/dL (0.2-1.0); Globulin 6.3 g/dL (2.3-3.5); Glomerular Filtration Rate 84 ml/min (=/>90); Glucose Level 79 mg/dL (74-106); Lipase 16 U/L (13-75); Magnesium 2.2 mg/dL (1.6-2.4); Potassium 4.1 mEq/L (3.5-5.1); Protein, Total 10.6 g/dL (6.4-8.2); Sodium Level 132 mEq/L (136-145)
[2025-02-01 03:41] LABS: AST/SGOT < 10 U/L (15-37)
[2025-02-01 05:15] LABS: Blood Morphology Comment NOT SEEN (NOT SEEN); Platelet Estimate INCR; White Blood Cell Scan OK (OK)
[2025-02-01] MEDS ORDERED: MORPHINE 4 MG/ML SYR ONE (06:19)
--- NOTE | 2025-02-01 07:21 | RAD REPORT ---
EXAM: CT abdomen and pelvis without intravenous contrast CLINICAL DATA: 44 years Male Abd pain;Nausea / vomiting TECHNICAL DATA: Axial CT imaging of the abdomen and pelvis was performed without oral or intravenous contrast. Sagi ttal and coronal reconstructed images were then performed. The CT study is performed according to ALARA (as low as reasonably achievable) or ALARA/IMAGE GENTLY, with automatic adjustment of mA and/or kV according to patient size. Performed on: 02/01/2025 at 4:58 AM Comparison: CT abdomen and pelvis report from 12/23/2024. The images were not available for review.. FINDINGS: Lung bases: The lung bases are clear. There is minimal left basilar atelectasis and/or fibrosis. The heart is normal in size. Liver: The liver is normal in size and configuration. No focal hepatic abnormalities are appreciated on this unenhanced scan. There is decreased attenuation of the liver commonly seen with hepatic steatosis. Spleen: The spleen is normal in size, configuration and attenuation. No focal splenic abnormalities a re appreciated on this unenhanced scan. Gallbladder and bile duct: The gallbladder is well distended and unremarkable. There is no biliary ductal dilatation. Pancreas: The pancreas is grossly normal in size and configuration. Adrenal Glands: The adrenal glands are normal in size and configuration. Kidneys: The kidneys are normal in size and configuration. There is no evidence of hydronephrosis. Th ere is no evidence of nephrolithiasis. No focal renal abnormalities are identified. Stomach: The stomach is grossly normal. There is no definite hiatal hernia. Bowel: The bowel gas pattern is non specific and non obstructive. Appendix: The appendix is not clearly visualized on this study. There is no CT evidence of acute appe ndicitis. Free air: There is no evidence of free air. Free fluid: There is no evidence of free fluid. Vasculature: The aorta is normal in caliber and contour. The inferior vena cava is grossly unremarkab le. Lymphadenopathy: No pathologic lymphadenopathy is identified. Bladder: The bladder is well distended. Portions of the pelvis are obscured by streak artifact relate d to the patient's bilateral hip arthroplasties. Reproductive: The prostate gland is grossly unremarkable. Again, the pelvis structures are partially obscured by streak artifact related to the patient's bilateral hip arthroplasties. Bones: No acute osseous abnormalities are identified. There are bilateral hip arthroplasties. There a re degenerative changes of the pelvis. The appearance of the thoracolumbar spine suggests possible ankylosing spondylitis. Soft tissues: No acute soft tissue abnormalities are identified. IMPRESSION: 1. No evidence of acute intra-abdominal or intrapelvic pathology. There is no evidence of bowel obs truction. 2. The appearance of the thoracolumbar spine suggests possible ankylosing spondylitis. 3. Bilateral hip arthroplasties which produce streak artifact and degradation of image quality in t he region of the pelvis. 4. Hepatic steatosis. Electronically signed by: Piedad Nascimento DO 02/01/2025 07:18 AM [facility] Due to temporary technical issues with the PACS/Kiwilogic reporting system, reports are being argelia d by the in-house radiologist without review as a courtesy to ensure prompt reporting the interpreting radiologist is fully responsible for the content of the report. Transcribed Date/Time: 02/01/2025 7:21 AM
--- NOTE | 2025-02-01 08:03 | ER ---
Nurse's Notes [facility] Name: Wilfredo Finley Age: 44 yrs Sex: Male : 1980 Arrival Date: 02/01/2025 Time: 02:44 Bed 3 Private MD: Diagnosis: Gastroenteritis, dehydration Presentation: 02/01 02:44 Chief complaint: EMS states: ABDOMINAL PAIN, NAUSEA, AND VOMITING SINCE MONDAY. ha1 02:44 Coronavirus screen: Client denies travel out of the [place] in the last 14 days. Ebola ha1 Screen: No symptoms or risks identified at this time. Initial Sepsis Screen: Does the patient meet any 2 criteria? No. Patient's initial sepsis screen is negative. Does the patient have a suspected source of infection? No. Patient's initial sepsis screen is negative. Risk Assessment: Do you want to hurt yourself or someone else? Patient reports no desire to harm self or others. Onset of symptoms was February 01, 2025. 02:44 Method Of Arrival: EMS: [facility] ha1 02:44 Acuity: JAYJAY 3 ha1 Triage Assessment: 02:48 General: Appears comfortable, Behavior is calm, cooperative. Pain: Complains of pain in ha1 abdomen Pain does not radiate. Pain currently is 7 out of 10 on a pain scale. Quality of pain is described as crampy. Neuro: Level of Consciousness is awake, alert, obeys commands, Oriented to person, place, time, situation. Cardiovascular: Capillary refill < 3 seconds Patient's skin is warm and dry. Respiratory: Airway is patent Respiratory effort is even, unlabored, Respiratory pattern is regular, symmetrical. GI: Abdomen is flat, non-distended, Reports lower abdominal pain, upper abdominal pain, nausea, vomiting. : No signs and/or symptoms were reported regarding the genitourinary system. Derm: Skin is normal. Musculoskeletal: Circulation, motion, and sensation intact. Historical: - Allergies: 03:12 No Known Allergies; ha1 - Home Meds: 03:12 Fentanyl Patch Topical [Active]; ha1 - PMHx: 03:12 Ankylosing Spondylitis; paraplegic; Pneumonia; ha1 - PSHx: 03:12 hip replacement; knee replacement; tendon release; ha1 - Immunization history:: Adult Immunizations up to date. - Infectious Disease History:: Denies. - Social history:: Smoking status: Patient denies any tobacco usage or history of. Screenin:00 [facility] ED Fall Risk Assessment (Adult) History of falling in the last 3 months, ha1 including since admission No falls in past 3 months (0 pts) Confusion or Disorientation No (0 pts) Intoxicated or Sedated No (0 pts) Impaired Gait Yes (1 pt) Mobility Assist Device Used Yes (1 pt) Altered Elimination No (0 pt) Score/Fall Risk Level 3 or more points = High Risk Oriented to surroundings, Maintained a safe environment, Educated pt \T\ family on fall prevention, incl call for assistance when getting out of bed, Hourly rounding (assess needs \T\ fall precautionary measures) done. Abuse screen: Denies threats or abuse. Denies injuries from another. Nutritional screening: No deficits noted. Tuberculosis screening: No symptoms or risk factors identified. Assessment: 02:48 Reassessment: SEE TRIAGE ASSESSMENT. ha1 03:28 Reassessment: Patient and/or family updated on plan of care and expected duration. Pain ha1 level reassessed. Patient is alert, oriented x 3, equal unlabored respirations, skin warm/dry/pink. 04:28 Reassessment: Patient appears in no apparent distress at this time. No changes from vc1 previously documented assessment. Patient and/or family updated on plan of care and expected duration. Pain level reassessed. Patient is alert, oriented x 3, equal unlabored respirations, skin warm/dry/pink. 06:08 Reassessment: Patient appears in no apparent distress at this time. No changes from vc1 previously documented assessment. Patient and/or family updated on plan of care and expected duration. Pain level reassessed. Patient is alert, oriented x 3, equal unlabored respirations, skin warm/dry/pink. 08:02 Reassessment: PT TBA. bp 10:10 Reassessment: Patient appears in no apparent distress at this time. Patient and/or hb family updated on plan of care and expected duration. Pain level reassessed. Patient is alert, oriented x 3, equal unlabored respirations, skin warm/dry/pink. 11:45 Reassessment: Patient appears in no apparent distress at this time. Patient and/or hb family updated on plan of care and expected duration. Pain level reassessed. Patient is alert, oriented x 3, equal unlabored respirations, skin warm/dry/pink. 12:52 Reassessment: Patient appears in no apparent distress at this time. Patient and/or hb family updated on plan of care and expected duration. Pain level reassessed. Patient is alert, oriented x 3, equal unlabored respirations, skin warm/dry/pink. Vital Signs: 02:44 BP 123 / 92; Pulse 145; Resp 19 S; Temp 98.3(O); Pulse Ox 98% on R/A; Weight 55.34 kg; ha1 Height 5 ft. 1 in. ; 03:28 BP 125 / 100; Pulse 144; Resp 17 S; Pulse Ox 98% on R/A; ha1 04:28 BP 127 / 83; Pulse 126; Resp 18; Pulse Ox 98% ; vc1 06:08 BP 130 / 90; Pulse 141; Resp 16; Pulse Ox 98% ; vc1 08:02 BP 115 / 80; Pulse 117; Resp 15; Pulse Ox 99% ; bp 10:10 BP 99 / 71; Pulse 101; Resp 15; Pulse Ox 99% on R/A; hb 12:30 BP 106 / 76; Pulse 101; Resp 15; Pulse Ox 99% on R/A; hb 02:44 Body Mass Index 23.05 (55.34 kg, 154.94 cm) ha1 ED Course: 02:48 Patient arrived in ED. ha1 02:48 Patient has correct armband on for positive identification. Bed in low position. Call ha1 light in reach. Side rails up X2. 02:48 Arm band placed on right wrist. ha1 02:49 Rich West PA is PHCP. cp 02:49 Rich Villavicencio MD is Attending Physician. cp 03:02 CBC with Diff Sent. ha1 03:02 CMP Sent. ha1 03:02 Lipase Sent. ha1 03:02 Magnesium Sent. ha1 03:12 Triage completed. ha1 03:44 XRAY Chest (1 view) In Process Unspecified. EDMS 05:01 Abdomen In Process Unspecified. EDMS 07:04 Attending Physician role handed off by Rich Villavicencio MD sp3 07:04 Tricia Whitney MD is Attending Physician. sp3 08:02 Madan Walker MD is Hospitalizing Provider. sp3 08:02 Behzad Mcdonnell, RN is Primary Nurse. bp 13:00 IV 22g LFA. Flushed good blood return. hb Administered Medications: 03:24 Drug: Ondansetron IVP 4 mg IVP once; over 2 minutes Route: IVP; Site: right antecubital;ha1 03:26 Drug: NS 0.9% IV 1000 ml IV at 1 bolus Per protocol; to be given as a bolus over 60 ha1 minutes Route: IV; Rate: 1 bolus; Site: right antecubital; 03:27 Drug: Famotidine IVP 20 mg IVP once; dilute with 10 mL 0.9% NaCl; give over 2 minutes ha1 Route: IVP; Site: right antecubital; 06:25 Drug: NS 0.9% IV 1000 ml IV at 1000 ml once; to be given as a bolus over 60 minutes vc1 Route: IV; Rate: 1000 ml; Site: left wrist; 06:25 Drug: morphine IVP or IV 4 mg IVP once over 4 mins Route: IVP; Infused Over: 4 mins; vc1 Site: left wrist; 06:26 Drug: Ondansetron IVP 4 mg IVP once; over 2 minutes Route: IVP; Site: left wrist; vc1 06:26 CANCELLED (Physician Discretion): ondansetron 4 mg IVP once; over 2 minutes cp Medication: 03:29 VIS not applicable for this client. ha1 Outcome: 08:02 Decision to Hospitalize by Provider. sp3 14:46 Patient left the ED. hb Signatures: Dispatcher [employer] EDMS Rich West PA PA cp Carmen Lin RN RN Behzad Mcdonnell, ACOSTA SHANE bp Tricia Whitney MD MD sp3 Allison Morrissey RN RN vc1 Haydee Montgomery RN RN ha1 Corrections: (The following items were deleted from the chart) 05:01 04:49 In radiology for Abdomen Pelvis W Con+CT.RAD.BRZ. EDMS EDMS
--- NOTE | 2025-02-01 08:03 | EDPHYS ---
Physician Documentation [facility] Name: Wilfredo Finley Age: 44 yrs Sex: Male : 1980 Arrival Date: 02/01/2025 Time: 02:44 Bed 3 Private MD: ED Physician Tricia Whitney HPI: 02/01 02:58 This 44 yrs old Male presents to ER via EMS with complaints of cp Nausea/Vomiting, Abdominal Pain. 02:58 The patient presents to the emergency department with vomiting, that is continuous, cp described as bilious, abdominal pain, of the right upper quadrant and left upper quadrant. Onset: The symptoms/episode began/occurred 3 day(s) ago. Possible causes: unknown. Associated signs and symptoms: Pertinent positives: abdominal pain, anorexia, Pertinent negatives: constipation, diarrhea, fever. Historical: - Allergies: 03:12 No Known Allergies; ha1 - Home Meds: 03:12 Fentanyl Patch Topical [Active]; ha1 - PMHx: 03:12 Ankylosing Spondylitis; paraplegic; Pneumonia; ha1 - PSHx: 03:12 hip replacement; knee replacement; tendon release; ha1 - Immunization history:: Adult Immunizations up to date. - Infectious Disease History:: Denies. - Social history:: Smoking status: Patient denies any tobacco usage or history of. ROS: 03:00 Constitutional: Positive for poor PO intake, Negative for fever, cp 03:00 Eyes: Negative for injury, pain, redness, and discharge, cp 03:00 ENT: Negative for drainage from ear(s), ear pain, sore throat, difficulty swallowing, difficulty handling secretions, 03:00 Cardiovascular: Positive for palpitations, Negative for chest pain, 03:00 Respiratory: Negative for cough, shortness of breath, wheezing, 03:00 Abdomen/GI: Positive for abdominal pain, nausea and vomiting, anorexia, Negative for diarrhea, constipation, hematemesis, 03:00 Neuro: Negative for altered mental status, 03:00 All other systems are negative, Exam: 03:05 Constitutional: The patient appears in no acute distress, alert, awake, cp non-diaphoretic, non-toxic, well developed, frail, 03:05 Head/Face: Normocephalic, atraumatic. cp 03:05 Eyes: Periorbital structures: appear normal, Pupils: equal, round, and reactive to light and accomodation, Conjunctiva: normal, no exudate, no injection, Sclera: no appreciated abnormality, Lids and lashes: appear normal, bilaterally, 03:05 ENT: External ear(s): are unremarkable, Nose: is normal, Mouth: Lips: dry, Oral mucosa: dry, Posterior pharynx: Airway: no evidence of obstruction, patent, 03:05 Chest/axilla: Inspection: normal, 03:05 Cardiovascular: Rate: tachycardic, Rhythm: regular, Edema: is not appreciated, JVD: is not appreciated, 03:05 Respiratory: the patient does not display signs of respiratory distress, Respirations: normal, no use of accessory muscles, no retractions, labored breathing, is not present, Breath sounds: decreased breath sounds, that are mild, throughout, stridor, is not appreciated, wheezing: is not appreciated, 03:05 Abdomen/GI: Inspection: abdomen appears normal, Bowel sounds: active, all quadrants, Palpation: soft, in all quadrants, moderate abdominal tenderness, in the epigastric area, right upper quadrant and left upper quadrant, rebound tenderness, is not appreciated, involuntary guarding, is not appreciated, 03:05 Back: pain, is absent, 03:05 Skin: cellulitis, is not appreciated, on the right lower leg and left lower leg, 03:05 Neuro: Orientation: to person, place \T\ time. Mentation: is normal, Motor: no acute changes, Sensation: no acute changes, 03:39 ECG was reviewed by the Attending Physician. cp Vital Signs: 02:44 BP 123 / 92; Pulse 145; Resp 19 S; Temp 98.3(O); Pulse Ox 98% on R/A; Weight 55.34 kg; ha1 Height 5 ft. 1 in. ; 03:28 BP 125 / 100; Pulse 144; Resp 17 S; Pulse Ox 98% on R/A; ha1 04:28 BP 127 / 83; Pulse 126; Resp 18; Pulse Ox 98% ; vc1 06:08 BP 130 / 90; Pulse 141; Resp 16; Pulse Ox 98% ; vc1 08:02 BP 115 / 80; Pulse 117; Resp 15; Pulse Ox 99% ; bp 10:10 BP 99 / 71; Pulse 101; Resp 15; Pulse Ox 99% on R/A; hb 12:30 BP 106 / 76; Pulse 101; Resp 15; Pulse Ox 99% on R/A; hb 02:44 Body Mass Index 23.05 (55.34 kg, 154.94 cm) ha1 MDM: 02:49 Medical Screening Exam initiated cp 07:49 ED course: Patient signed out to me by nighttime team. 44-year-old male with sp3 quadriplegia presents with nausea vomiting abdominal pain and diarrhea. Initial heart rate 140. No lactate was ordered initially. CT scan demonstrates no significant acute abnormality with other findings as listed. WBC count 11,000. Anion gap elevated indicating dehydration. Will reevaluate and disposition accordingly.. 02/01 05:01 Order name: Abdomen EDMS 02/01 02:55 Order name: CBC with Diff; Complete Time: 05:21 cp 02/01 03:19 Interpretation: Normal except: WBC 11.00; RBC 5.45; PLT 503; RDW 15.9; DEYSI% 88.2; LYM% cp 6.2; NEUT A 9.7. 02/01 02:55 Order name: CMP; Complete Time: 03:43 cp 02/01 03:43 Interpretation: Normal except: NA 132; CO2 13; ANION GAP 21.1; GFR 84; AST < 10; ALT cp 15; ALK 135; TP 10.6; GLOB 6.3; A/G 0.7. 02/01 02:55 Order name: Lipase; Complete Time: 03:43 cp 02/01 04:44 Interpretation: Reviewed. 02/01 02:55 Order name: Magnesium; Complete Time: 03:43 cp 02/01 04:43 Interpretation: Reviewed. 02/01 05:15 Order name: CBC Smear Scan; Complete Time: 05:21 EDKS 02/01 05:21 Interpretation: Reviewed. 02/01 03:22 Order name: XRAY Chest (1 view) cp 02/01 03:18 Order name: EKG; Complete Time: 03:18 cp 02/01 02:55 Order name: IV Saline Lock; Complete Time: 03:01 cp 02/01 02:55 Order name: Labs collected and sent; Complete Time: 03:02 cp 02/01 03:18 Order name: EKG - Nurse/Tech; Complete Time: 03:37 cp EC:39 Rate is 143 beats/min. Rhythm is regular. TX interval is normal. QRS interval is cp normal. QT interval is normal. T waves are Inverted in leads I, aVL. Interpreted by me. Reviewed by me. Administered Medications: 03:24 Drug: Ondansetron IVP 4 mg IVP once; over 2 minutes Route: IVP; Site: right antecubital;ha1 03:26 Drug: NS 0.9% IV 1000 ml IV at 1 bolus Per protocol; to be given as a bolus over 60 ha1 minutes Route: IV; Rate: 1 bolus; Site: right antecubital; 03:27 Drug: Famotidine IVP 20 mg IVP once; dilute with 10 mL 0.9% NaCl; give over 2 minutes ha1 Route: IVP; Site: right antecubital; 06:25 Drug: NS 0.9% IV 1000 ml IV at 1000 ml once; to be given as a bolus over 60 minutes vc1 Route: IV; Rate: 1000 ml; Site: left wrist; 06:25 Drug: morphine IVP or IV 4 mg IVP once over 4 mins Route: IVP; Infused Over: 4 mins; vc1 Site: left wrist; 06:26 Drug: Ondansetron IVP 4 mg IVP once; over 2 minutes Route: IVP; Site: left wrist; vc1 06:26 CANCELLED (Physician Discretion): ondansetron 4 mg IVP once; over 2 minutes cp Disposition Summary: 02/01/25 08:02 Hospitalization Ordered Notes: Hospitalization Status: Observation sp3 Provider: Madan Walker sp3 Condition: Stable sp3 Problem: an acute exacerbation sp3 Symptoms: have worsened sp3 Bed/Room Type: Standard sp3 Location: Telemetry/MedSurg (Inpatient)(02/01/25 12:52) Room Assignment: 414(02/01/25 13:35) Diagnosis - Gastroenteritis, dehydration sp3 Forms: - Medication Reconciliation Form sp3 - SBAR form sp3 - Leadership Thank You Letter sp3 Addendum: 02/02/2025 17:42 Co-signature as Attending Physician, Rich Villavicencio MD I agree with the assessment and c fiore plan of care. Signatures: Dispatcher [employer] Yanet Barrera RN RN dw Anderson, Corey, MD MD cha Pinkerton, Shawna sp Calderon, Audri, RN RN aa5 Rich [place] PA PA cp Tricia Whitney MD MD sp3 Allison Morrissey, RN RN vc1 Haydee Montgomery RN RN ha1 Corrections: (The following items were deleted from the chart) 02/01 02:55 02:55 CBC+H.LAB.BRZ ordered. EDMS EDMS 02:55 02:55 COMPREHENSIVE METABOLIC PANEL+C.LAB.BRZ ordered. EDMS EDMS 02:55 02:55 LIPASE+C.LAB.BRZ ordered. EDMS EDMS 02:55 02:55 MAGNESIUM+C.LAB.BRZ ordered. EDMS EDMS 05:01 03:45 Abdomen Pelvis W Con+CT.RAD.BRZ ordered. EDMS EDMS 06:26 06:26 Ondansetron IVP 4 mg IVP once; over 2 minutes ordered. cp cp 10:15 08:02 Telemetry/MedSurg (observation) sp3 aa5 10:15 08:02 sp3 aa5 12:52 10:15 [facility] ER HOLD aa5 sp 12:52 10:15 ERHOLD- aa5 sp 13:35 12:52 sp dw
[2025-02-01 14:55] VITALS: BMI 23.0
[2025-02-01] MEDS: NA CHLORIDE 0.9% 1,000 ML IV SCH (15:22)
[2025-02-01] MEDS: ONDANSETRON 4 MG/2 ML VIAL IV PRN (15:57)
[2025-02-01] MEDS: MORPHINE 2 MG/ML SYR IV PRN (17:56)
--- NOTE | 2025-02-01 18:59 | RAD REPORT ---
EXAM DESCRIPTION: X-ray single view chest. CLINICAL HISTORY: 44 years Male, vomiting COMPARISON: Chest CT and chest x-ray report from 12/23/2024. The images were unavailable for review. TECHNIQUE: Single portable x-ray view of the chest performed on 02/01/2025 at 3:38 AM FINDINGS: The lungs are well expanded and are clear. There is no evidence of a pneumothorax. The cardiac silhouette is normal in size and configuration. The mediastinal contours are normal. No acute osseous abnormality is identified. No focal soft tissue abnormalities are seen. Lines and tubes: None. Free air: None identified, IMPRESSION: No evidence of acute intrathoracic disease. Electronically signed by: Piedad Nascimento DO 02/01/2025 07:08 AM CDT RP Due to temporary technical issues with the PACS[employer] / [employer] reporting system, reports are being argelia d by the in-house radiologist without review as a courtesy to ensure prompt reporting. The interpreting radiologist is fully responsible for the content of the report. Transcribed Date/Time: 02/01/2025 6:58 PM
[2025-02-01] MEDS: NYSTATIN 100MU/GM CREAM 15GM TOP SCH (20:29)
[2025-02-01] MEDS: FENTANYL 50 MCG/PATCH TD SCH (20:55)
[2025-02-01] MEDS: LORAZEPAM 1 MG TABLET PO SCH (20:55)
--- NOTE | 2025-02-01 23:48 | P.HP ---
Certification for Inpatient Patient admitted to: Observation With expected LOS: <2 Midnights Patient will require the following post-hospital care: None Practitioner: I am a practitioner with admitting privileges, knowledge of patient current condition, hospital course, and medical plan of care. Services: Services provided to patient in accordance with Admission requirements found in Title 42 Section 412.3 of the Code of Federal Regulations Patient History Date of Service: 02/01/25 Reason for admission: Intractable nausea & vomiting History of Present Illness: Patient is a 44-year-old gentleman who came the hospital with nausea vomiting. Patient has a history of ankylosing spondylitis with bilateral hip surgery. Patient also with spine injury. Patient has been bed-bound for quite a while. Patient has not been doing much activity. Patient's sister and his [id number] help take care of in day-to-day. Patient also has arterial insuf ficiency. Patient appears to have a fungal infection on the leg. Patient is clinically feeling a little bit better. Patient will be hydrated anticipate discharge in a.m.. Allergies No Known Allergies Allergy (Unverified 12/23/24 03:36) Home Medications: Fentanyl Patch [Duragesic Patch*] 1 each TD EVERY 3RD DAY 12/23/24 LORazepam [Ativan*] 3 mg PO BEDTIME 12/23/24 Morphine *Extended Release* [MS Contin*] 30 mg PO Q12H 12/23/24 Hydrocodone Bit/Acetaminophen [[place] 7.5-325 Tablet] 1 tab PO Q6H PRN 02/01/25 - Past Medical/Surgical History Has patient received pneumonia vaccine in the past: No Diabetic: No -: Ankylosing spondylitis, paraplegia -: double hip surgery -: bilateral knee surgery - Family History Father History Unknown: Yes Mother Medical History: Other (see notes) Notes: lung problem - Social History Smoking Status: Never smoker Alcohol use: No CD- Drugs: No Caffeine use: No Place of Residence: Home Review of Systems 10-point ROS is otherwise unremarkable Physical Examination - Vital Signs Temperature: 98.4 F Blood Pressure: 116/77 Pulse: 105 Respirations: 17 Pulse Ox (%): 99 - Physical Exam General: Alert, In no apparent distress, Oriented x3, Cachectic HEENT: Atraumatic, PERRLA, Mucous membr. moist/pink, EOMI, Sclerae nonicteric Neck: Supple, 2+ carotid pulse no bruit, No LAD, Without JVD or thyroid abnormality Respiratory: Clear to auscultation bilaterally, Normal air movement Cardiovascular: Regular rate/rhythm, Normal S1 S2, No murmurs Gastrointestinal: Normal bowel sounds, Soft and benign, Non-distended, No tenderness, Other ( Scaphoid abdomen) Musculoskeletal: No clubbing, No swelling, No tenderness Integumentary: Rash(es), Skin lesion, Other Neurological: Normal speech, Sensation intact, Cranial nerves 3-12 intact, Abnormal gait, Abnormal strength Lymphatics: No axilla or inguinal lymphadenopathy - Studies Laboratory Data (last 24 hrs) 02/01/25 02/01/25 03:00 03:00 WBC 11.00 H Hgb 15.8 Hct 47.7 Plt Count 503 H Sodium 132 L Potassium 4.1 BUN 13 Creatinine 1.12 Glucose 79 Magnesium 2.2 Total Bilirubin 0.6 AST < 10 L ALT 15 L Alkaline Phosphatase 135 H Lipase 16 Assessment & Plan - Problems (Diagnosis) (1) Nausea and vomiting Current Visit: Yes Status: Acute (2) (ankylosing spondylitis) Current Visit: Yes Status: Acute (3) Cutaneous candidiasis Current Visit: Yes Status: Acute - Plan Plan: 1. Nausea and vomiting; most likely gastroenteritis. Continue with IV fluids. Continue with anti emetics. Advance diet in a.m. 2. History of cutaneous candidiasis; continue with antifungal therapy 3. History of ankylosing spondylitis; supportive care 4. GI/DVT prophylaxis Discharge Plan: Home Plan to discharge in: 24 Hours - Advance Directives Does patient have a Living Will: No Does patient have a Durable POA for Healthcare: No - Code Status/Comfort Care Code Status Assessed: Yes Code Status: Full Code Critical Care: No Time Spent Managing PTS Care (In Minutes): 45
[2025-02-02 15:11] LABS: Anion Gap 17.4 mEq/L (5.0-15.0); Potassium 3.4 mEq/L (3.5-5.1)
[2025-02-02] MEDS: SODIUM BICARB 325 MG TAB PO SCH (16:04)
[2025-02-02] MEDS: D5W 1,000 ML with NA BICARB 8.4% 100 MEQ IV SCH (16:23)
--- NOTE | 2025-02-02 20:30 | P.PN ---
Subjective Date of Service: 02/02/25 Patient feeling better. However, he patient remains acidotic. Will correct acidosis which is most likely starvation related as lactic acid is normal. Patient needs to increase his nutritional support. Anticipate discharge home tomorrow morning Review of Systems 10-point ROS is otherwise unremarkable Physical Examination - Vital Signs Temperature: 98.2 F Blood Pressure: 115/80 Pulse: 107 Respirations: 17 Pulse Ox (%): 95 - Physical Exam General: Alert, In no apparent distress, Oriented x3, Cachectic Respiratory: Clear to auscultation bilaterally, Normal air movement Cardiovascular: Regular rate/rhythm, Normal S1 S2 Gastrointestinal: Normal bowel sounds, Soft and benign, Non-distended, No tenderness Musculoskeletal: No tenderness Integumentary: No rashes Neurological: Abnormal gait, Abnormal strength Lymphatics: No axilla or inguinal lymphadenopathy - Studies Laboratory Data (last 24 hrs) 02/02/25 14:44 Sodium 137 Potassium 3.4 L BUN 4 L Creatinine 0.77 Glucose 65 L Medications List Reviewed: Yes Assessment & Plan - Problems (Diagnosis) (1) Nausea and vomiting Current Visit: Yes Status: Acute (2) (ankylosing spondylitis) Current Visit: Yes Status: Acute (3) Cutaneous candidiasis Current Visit: Yes Status: Acute (4) Metabolic acidosis Current Visit: Yes Status: Acute - Plan Plan: 1. Nausea and vomiting; most likely gastroenteritis. Continue with IV fluids. Continue with anti emetics. Advance diet in a.m. 2. History of cutaneous candidiasis; continue with antifungal therapy 3. History of ankylosing spondylitis; supportive care; continue with pain control. 4. Continue with bicarb drip 5. GI/DVT prophylaxis Discharge Plan: Home Plan to discharge in: Greater than 2 days - Advance Directives Does patient have a Living Will: No Does patient have a Durable POA for Healthcare: No - Code Status/Comfort Care Code Status: Full Code Critical Care: No Time Spent Managing PTS Care (In Minutes): 35
[2025-02-02 22:26] LABS: Sqamous Epithelial None Seen /HPF (None Seen); Urine Bacteria None Seen /HPF (<20); Urine Bilirubin NEGATIVE (Negative); Urine Blood Negative (Negative); Urine Clarity Clear (Clear); Urine Color Colorless (Yellow); Urine Culture Reflex Order NOT NEEDED; Urine Glucose NEGATIVE (Negative); Urine Ketones 3+ (Negative); Urine Micro Reflex YN NO BILL MICROSCOPIC; Urine Mucus Slight /HPF (None Seen); Urine Nitrite NEGATIVE (Negative); Urine Protein NEGATIVE (Negative); Urine RBC None Seen /HPF (None Seen); Urine Urobilinogen Normal (Normal); Urine WBC <5 /HPF (<5)
[2025-02-03 06:52] LABS: Absolute Eosinophils 0.1 K/uL (0-0.5); Absolute Lymphocytes (CBC) 1.2 K/uL (0.7-4.9); Absolute Monocytes 0.5 K/uL (0.1-1.3); Absolute Neutrophil 3.6 K/uL (1.8-8.0); Basophils % 0.3 % (0-1.3); Hemoglobin 12.7 g/dL (13.6-17.9); Lymphocytes % 22.5 % (15.3-44.8); MCH 28.2 pg (27.0-35.0); MCHC 33.4 g/dL (32.0-36.0); MCV 84.4 fL (80-100); MPV 7.7 fL (7.6-11.3); Monocytes % 9.4 % (3.3-12.3); Neutrophils % 66.8 % (41.7-73.7); Nucleated Red Blood Cells % 0.1 % (0-0); Platelets 289 thou/uL (152-406); RBC Red Blood Cell Count 4.51 M/uL (4.33-5.43); Red Cell Distribution Width 15.5 % (12.1-15.2)
[2025-02-03 07:08] LABS: ALT/SGPT < 14 U/L (16-61); AST/SGOT < 10 U/L (15-37); Albumin 3.3 g/dL (3.4-5.0); Albumin/Globulin Ratio 0.8 (1.1-1.8); Alkaline Phosphatase 88 U/L (45-117); Anion Gap 7.6 mEq/L (5.0-15.0); BETA HYDROXYBUTYRATE 1.05 mmol/L (0.02-0.27); BUN Blood Urea Nitrogen 4 mg/dL (7-18); Bicarbonate 32 mEq/L (21-32); Bilirubin Total 0.9 mg/dL (0.2-1.0); Globulin 4.3 g/dL (2.3-3.5); Glomerular Filtration Rate 115 ml/min (=/>90); Glucose Level 153 mg/dL (74-106); Magnesium 1.9 mg/dL (1.6-2.4); Potassium 3.6 mEq/L (3.5-5.1); Protein, Total 7.6 g/dL (6.4-8.2); Sodium Level 139 mEq/L (136-145)
[2025-02-03 08:27] VITALS: BP 119/72; TEMP 98.1
[2025-02-03 09:02] VITALS: O2SAT 100
[2025-02-04] MEDS ORDERED: FENTANYL 50 MCG/PATCH TD SCH (09:00)
== END 2025-02-03 10:14 | disposition home or self-care (01) | DRG 392 ==
LOC: ER 02:44 → ERHOLD 13:23 → 4TH 13:54 → OBSVTOIN 02-02 16:03
PROVIDERS: ADMIT Hospitalist; ATTEND Hospitalist
DX: K52.9 Noninfective gastroenteritis and colitis, unspecified (principal); G82.20 Paraplegia, unspecified; R64 Cachexia; E87.21 Acute metabolic acidosis; E86.0 Dehydration; I77.1 Stricture of artery; M45.9 Ankylosing spondylitis of unspecified sites in spine; B37.9 Candidiasis, unspecified; Z74.01 Bed confinement status; Z68.23 Body mass index [BMI] 23.0-23.9, adult; Z79.899 Other long term (current) drug therapy; Z96.643 Presence of artificial hip joint, bilateral; Z96.659 Presence of unspecified artificial knee joint
CPT/HCPCS: 36415; 71045; 74176; 80048; 80053; 81001; 82010; 83605; 83690; 83735; 85025; 99284; G0378; J2270; J2405; J7030; Q9967